=== PATIENT | male | born 1945 | race Caucasian/White ===

== ENCOUNTER 2023-06-05 14:54 | Outpatient (CLI) | payer MEDICARE | END 2023-06-05 14:55 | disposition home or self-care (01) | LOC: CSHCT 14:54 | PROVIDERS: ATTEND Family Medicine | DX: K42.9 Umbilical hernia without obstruction or gangrene (principal); N28.1 Cyst of kidney, acquired | CPT/HCPCS: 74177; 82565 ==

== ENCOUNTER 2023-12-02 08:28 | Outpatient (CLI) | payer MEDICARE, OTHER ==
[2023-12-02] MEDS ORDERED: Iopamidol 300 61% 100 ML VIAL FS ONE (12:31)
== END 2023-12-02 08:29 | disposition home or self-care (01) ==
LOC: CSHCT 08:28
PROVIDERS: ATTEND Family Medicine
DX: N28.1 Cyst of kidney, acquired (principal)
CPT/HCPCS: 74178; 82565; Q9967

== ENCOUNTER 2024-03-06 16:42 | Emergency (ER) | payer MEDICARE, OTHER ==
[2024-03-06] MEDS ORDERED: Acetaminophen 500 MG TAB ONE (17:36)
[2024-03-06] MEDS ORDERED: Lidocaine 4% Patch TD SCH (18:30)
[2024-03-07] MEDS ORDERED: Transdermal Patch Removal TOP SCH (06:30)
== END 2024-03-06 18:59 | disposition home or self-care (01) ==
LOC: CSHERS 16:42
DX: M54.42 Lumbago with sciatica, left side (principal); I10 Essential (primary) hypertension; Z87.891 Personal history of nicotine dependence; Z86.718 Personal history of other venous thrombosis and embolism
CPT/HCPCS: 72100; 93005

== ENCOUNTER 2025-08-11 11:05 | Outpatient (CLI) | payer MEDICARE | END 2025-08-11 11:06 | disposition home or self-care (01) | LOC: CSHULT 11:05 | PROVIDERS: ATTEND Family Medicine | DX: M79.661 Pain in right lower leg (principal) ==